=== PATIENT | female | born 1970 ===

== ENCOUNTER 2020-06-03 09:33 | Day surgery (SDC) | payer OTHER ==
[~2020-06-03 09:33] MED LIST: EFFEXOR XR75 MG PO
== END 2020-06-03 20:57 | disposition home or self-care (01) ==
LOC: CIR.AMB 09:33
PROVIDERS: ATTEND Student in an Organized Health Care Education/Training Program
DX: N84.0 Polyp of corpus uteri (principal); Z20.822 Contact with and (suspected) exposure to COVID-19